=== PATIENT | female | born 1965 | race Caucasian/White ===

== ENCOUNTER 2024-06-26 14:25 | Outpatient (AMB) | payer BC, SELFPAY ==
--- NOTE | 2024-06-26 14:29 | MHC.OFFVIS ---
Vital Signs 06/26/24 14:30 Height 5 ft 2 in Weight 136 lb 2 oz BMI 24.9 BP 138/84 Blood Pressure Location Lt brachial Position Sitting Pulse 78 Pulse Source Pulse Oximeter Pulse Oximetry (%) 98 Oxygen Delivery Method Room Air Intake Visit Reasons: Arthritis Intake Note: Patient presents for follow up on arthralgia. She was last seen at [facility] on 12/28/23. Allergies Penicillins Allergy (Unknown, Unverified 06/26/24 14:34) Unknown Seasonal Allergies Allergy (Unknown, Unverified 06/26/24 14:34) Unknown HPI HPI Arthritis: Details: She was prescribed elbow braces for bilateral ulnar neuropathy on EMG as well as empiric treatment of median neuropathy with bilateral cock-up wrist braces as patient experiences paraesthesia in all fingers with increased activity (summer months). Patient reports that [facility] has a but is requesting additional information. 02/13 she had pain and swelling right 2-3 palmar MCP swelling. Lasted 2-3 days. Used ibuprofen 600mg q12h PRN 03/25 woke up with right shoulder pain and limited ROM. X-ray showed tendonitis. She was precribed diclofenac po BID for few days then changed to ibuprofen when pain improved. Lasted 4 days. 03/29 she had pain in right CMC then left CMC joint 04/22 pain and swelling R 3rd palmar MCP 05/28-12 left iritis treated with prednisolone. 05/31 base of bocanegra 3-5th MCP pain and swelling lasting a few days. Ibuprofen 600 mg q.12 hourly p.r.n. helps reduce joint pain and swelling. No other joints are involved. New patch right elbow. She has scales in her ears with pruritus treated with topical steroid prescribed by self sealing fuel tank repairer in the past who diagnosed her with dermatitis. Scales resolve with steroid. Mother has psoriasis. hx bilateral iritis with [address] Lopez. Treated with prednisolone ocular drops PRN. Denies IBD or chronic back when she was young. [facility]LY [facility], [facility] Medical History (Updated 06/26/24 @ 15:41 by Blake Howard MD) Iritis of left eye Hypothyroid Hernia Arthralgia of hand RUSTY positive Surgical History (Updated 05/24/24 @ 09:15 by Rayne Cohen CMA) S/P bunionectomy Review of Systems Const All systems reviewed & are unremarkable except as noted in HPI and below Physical Exam Vital Signs: Last Vital Signs Pulse 78 06/26/24 14:30 BP 138/84 06/26/24 14:30 Pulse Ox 98 06/26/24 14:30 Oxygen Delivery Method Room Air 06/26/24 14:30 BMI result Body Mass Index 24.9 Const Other: General: Comfortable CVS: RRR Respiratory: clear to auscultation bilaterally. Good respiratory effort Skin: Dry skin with rough skin and scaling present around right elbow. no erythematous lesion. MSK: No tenderness of any joint. No synovitis. Good range of motion of upper extremities and lower extremities. Assessment & Plan Assessment & Plan (1) Joint swelling: Comment: She continues to have episodic joint swelling involving palmar aspect of MCPs responding to ibuprofen 600 mg q.12 hourly lasting a few days. She has history of iritis with clinical concern of psoriasis in ears. 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 Code(s): M25.40 - Effusion, unspecified joint Category: Medical Plan: I have ordered labs for patient to have done at her local lab during an episode for further workup of inflammatory arthritis. [facility]ing [facility] Return to clinic in 3 months. She will call office if she has frequent episodes. I will then prescribed meloxicam 15 mg daily to replace ibuprofen. (2) Psoriasis: Comment: ? Contributing to scaling in ears Code(s): L40.9 - Psoriasis, unspecified Category: Medical Plan: Dermatology referral (3) Ulnar neuropathy of both upper extremities: Comment: Possible on EMG. Exacerbated with activity. Code(s): G56.23 - Lesion of ulnar nerve, bilateral upper limbs Category: Medical Plan: She [place] [facility] [place] [facility] [place]. It is medically necessary that patient receives elbow support braces to treat ulnar neuropathy of bilateral upper extremities. Medical supply store reports that insurance requires more information. Patient will contact medical supply store for information that is required. (4) Carpal tunnel syndrome: Comment: Suspected. Bilateral. She has paraesthesia of all fingers with increased activity. Code(s): G56.00 - Carpal tunnel syndrome, unspecified upper limb Category: Medical Qualifiers: Laterality: bilateral Qualified Code(s): G56.03 - Carpal tunnel syndrome, bilateral upper limbs Plan: Prescription for bilateral cock-up wrist braces was given to patient 11/2023. It is medically necessary the patient receives bilateral cock-up wrist braces to treat carpal tunnel syndrome. Orders: Orders C Reactive Protein Today M25.40 - Effusion, unspecified joint Hepatitis B Core Antibody Today M25.40 - Effusion, unspecified joint Alanine Aminotransferase Today M25.40 - Effusion, unspecified joint Complete Blood Count Auto Diff Today M25.40 - Effusion, unspecified joint Cyclic Citrullinated Peptide Today M25.40 - Effusion, unspecified joint Rheumatoid Factor Today M25.40 - Effusion, unspecified joint Erythrocyte Sedimentation Rate Today M25.40 - Effusion, unspecified joint Hepatitis B Surface Antigen Today M25.40 - Effusion, unspecified joint Hepatitis C Antibody Today M25.40 - Effusion, unspecified joint Aspartate Amino Transferase Today M25.40 - Effusion, unspecified joint Creatinine Today M25.40 - Effusion, unspecified joint HLA B27 Today M25.40 - Effusion, unspecified joint Referrals Dermatology Referral L40.9 - Psoriasis, unspecified Coding Level of Care Code Est Pt Level 4 (95473) Complex EM visit Add On G2211 Diagnoses Joint swelling M25.40 Psoriasis L40.9 Ulnar neuropathy of both upper extremities G56.23 Bilateral carpal tunnel syndrome G56.03 Laterality: bilateral
[2024-06-26 14:30] VITALS: BP 138/84; PULSE 78; O2SAT 98; BMI 24.9
--- OUTSIDE RECORDS SUMMARY | 2024-06-26 15:18 | XMS_ITS | Patient Health Record ---
Author Organization [facility] Address [address] [place] [address] Care Team Providers Care Tobacco Educator Name Role Phone Therese Dupree Unavailable [phone] Reason For Referral No Information Medications Medication SIG (Take, Route, Frequency, Duration) Notes Start Date End Date Status Levothyroxine Sodium 50MCG 1 ORAL daily for -3 Keon-MJ 03/2012 Active Problems Problem Type SNOMED Code ICD Code Onset Dates Problem Status W/U Status Risk Notes Problem Hypothyroidism (06303724) Unspecified hypothyroidism (244.9) Active confirmed Major Problem Gynecological examination normal (338024632023446) Routine gynecological examination (V72.31) Active confirmed Diag Problem Dietary management surveillance (441398068) Dietary surveillance and counseling (V65.3) Active confirmed Diag Problem Exercises teaching, guidance, and counseling (898964607) Exercise counseling (V65.41) Active confirmed Diag Plan Of Treatment No Information Insurance Providers Payer Name Payer Address Payer Phone Subscriber Number Group Number Insured Name Patient Relationship to Insured Coverage Start Date Coverage End Date [employer] [place] [address] [place] [address] [id number] GABBY JOSÉ Self - patient is the insured 2
--- OUTSIDE RECORDS SUMMARY | 2024-06-26 15:18 | XMS_ITS | Encounter Summary ---
Author Organization [employer] [facility] Address [address] [place] [address] [address]t [place] [address] Care Team Providers Care Director Of Group Sales Name Role Phone Unavailable Primary Care Provider Unavailabl e Encounter Details Date Type Department Care Team (Late st Contact Info) Description 05/13/2022 Abstract Angy [facility] [address] [place] [address] Dental, Provider, DDS Social History Tobacco Use Types Packs/Day Years Used Date Smoking Tobacco: Never Assessed Comments Unknown Sex and Gender Information Value Date Recorded Sex Assigned at Female 10/01/2022 7:55 AM EDT Legal Sex Female 5:35 PM EDT Gender Identity Choose not to disclose 7:55 AM EDT Sexual Orientation Choose not to disclose 2022 7:55 AM EDT documented as of this encounter Plan of Treatment Not on file documented as of this encounter Procedures Procedure Name Priority Date/Time Associated Diagnosis Comments PROPHYLAXIS - ADULT Routine 04/19/2022 1 2:00 AM EST PERIODIC ORAL EVALUATION - ESTABLISHED PATIENT Routine 04/19/2022 12:00 AM EST documented in this encounter Visit Diagnoses Not on filedocumented in this encounter
--- OUTSIDE RECORDS SUMMARY | 2024-06-26 15:18 | XMS_ITS | Encounter Summary ---
Author Organization [employer] [facility] Address [address] [place] [address] [address]t [place] [address] Care Team Providers Care Paper Stacker Name Role Phone Unavailable Primary Care Provider Unavailabl e Encounter Details Date Type Department Care Team (Latest Contact Info) Description 10/14/2021 Abstract [facility] Dental, Provider, DDS Social History Tobacco Use [...] on file documented as of this encounter Visit Diagnoses Not on filedocumented in this encounter
--- OUTSIDE RECORDS SUMMARY | 2024-06-26 15:18 | XMS_ITS | Clinical Summary ---
Author Organization [facility] [employer] [facility] Address [address] [place] [address] [address] [place] [address] Care Team Providers Care Wastewater Design Engineer Name Role Phone Unavailable Primary Care Provider Unavailabl e Allergies Active Allergy Reactions Criticality Noted Date Comments Penicillin G Dermatitis Low 05/06/2023 Medications No known medications Social History Tobacco Use Types Packs/Day Years Used Date Smoking Tobacco: Never Assessed Comments Unknown Sex and Gender Information Value Date Recorded Sex Assigned at Female 10/01/2022 7:55 AM EDT Legal Sex Female 5:35 PM EDT Gender Identity Choose not to disclose 7:55 AM EDT Sexual Orientation Choose not to disclose 2022 7:55 AM EDT Plan of Treatment Health Maintenance Due Date Last Done Comments CT Colonography 1964 Colonoscopy 1964 Colorectal Cancer Screening 1964 Depression Screening 1964 FIT DNA/Cologuard 1964 FIT 1964 FOBT 1964 HIV Screening 1964 SDOH Screening 1964 Sigmoidoscopy 1964 Alcohol/Substance Use Screening 1976 Tobacco Screening 1976 Hepatitis C Screening 1982 Hepatitis B Vaccines (1 of 3 - 19+ 3-dose series) 11/03/1983 Pap Smear 1985 Cervical Cancer Screening 1994 HPV/Cotest 1994 Mammogram 2004 Zoster Vaccines (1 of 2) 2014 Dental X-Ray: Full Mouth 06/01/2021 05/31/2018, 08/29 Dental X-Ray: Bitewings 10/24/2023 10/23/19 23, 10/14/2021, 10/10/2020, Additional history exists Dental Oral Exam 11/06/2023 05/06/2023, , 04/19/2022, Additional history exists Dental Prophylaxis 11/06/2023 05/06/2023, 0 10/22/2022, 04/19/2022, Additional history exists COVID-19 Vaccine (3 - season) 2024 07/11/2021, 11/01/2020 Influenza Vaccine (#1) 2024 0, 03/24/2018, 03/12/2015, Additional history exists DTaP/Tdap/Td Vaccines (3 - Td or Tdap) 12/15/2031 12/14/2021, 03/24/2012 RSV Patients and Patients Aged 60 years or older (1 - 1-dose 75+ series) 11/03/2039 HIB Vaccines Aged Out No longer eligi ble based on patient's age to complete this topic HPV Vaccines Aged Out No longer eligi ble based on patient's age to complete this topic Hepatitis A Vaccines Aged Out No long er eligible based on patient's age to complete this topic IPV Vaccines Aged Out No longer eligi ble based on patient's age to complete this topic Meningococcal Vaccine Aged Out No rowdy kevin eligible based on patient's age to complete this topic Pneumococcal Vaccine: Pediatrics (0 to 5 Years) and At-Risk Patients (6 to 64 Years) Aged Out No longer eligible based on patient's age to complete this topic RSV under 20 months Aged Out No longe r eligible based on patient's age to complete this topic Rotavirus Vaccines Aged Out No longer eligible based on patient's age to complete this topic Procedures Procedure Name Priority Date/Time Associated Diagnosis Comments Full PROPHYLAXIS - ADULT Routine 023 12:00 PM EST PERIODIC ORAL EVALUATION - ESTABLISHED PATIENT Routine 05/06/2023 12:00 PM EST BITEWINGS - 4 RADIOGRAPHIC IMAGES Routine 10/22/2022 10:20 AM EDT DIAGNOSTIC - DIAGNOSTIC IMAGING - INTRAORAL - COMPREHENSIVE SERIES OF RADIOGRAPHIC IMAGES Routine 05/31/2018 12:00 AM EST from Last 3 Months or Most Recently Relevant to Health Maintenance Insurance [facility]
--- OUTSIDE RECORDS SUMMARY | 2024-06-26 15:18 | XMS_ITS | Encounter Summary ---
Author Organization [employer] [facility] Address [address] [place] [address] [address] [place] [address] Care Team Providers Care Coal Drier Operator Name Role Phone Unavailable Primary Care Provider Unavailabl e Encounter Details Date Type Department Care Team (Latest Contact Info) Description 01/04/2019 Abstract [facility], Provider, DDS Social [...]
--- OUTSIDE RECORDS SUMMARY | 2024-06-26 15:18 | XMS_ITS | Encounter Summary ---
Author Organization [employer] [facility] Address [address] [place] [address] [address] [place] [address] Care Team Providers Care Master Plumber Name Role Phone Unavailable Primary Care Provider Unavailabl e Encounter Details Date Type Department Care Team (Latest Contact Info) Description 10/10/2020 Abstract [facility] Dental, Provider, DDS Social [...]
--- OUTSIDE RECORDS SUMMARY | 2024-06-26 15:18 | XMS_ITS | Encounter Summary ---
Author Organization [employer] [facility] Address [address] [place] [address] [address]t [place] [address] Care Team Providers Care Rotary Soil Stabilizer Name Role Phone Unavailable Primary Care Provider Unavailabl e Encounter Details Date Type Department Care Team (Latest Contact Info) Description 04/13/2021 Abstract [facility], Provider, DDS Social [...]
--- OUTSIDE RECORDS SUMMARY | 2024-06-26 15:19 | XMS_ITS | Encounter Summary ---
Author Organization [employer] [facility] Address [address] [place] [address] [address] [place] [address] Care Team Providers Care Fine Wire Drawer Name Role Phone Unavailable Primary Care Provider Unavailabl e Encounter Details Date Type Department Care Team (Latest Contact Info) Description 05/31/2018 Abstract [facility] Dental, Provider, DDS Social [...]
== END 2024-06-26 15:21 | disposition home or self-care (01) ==
PROVIDERS: PCP Internal Medicine; Visit Provider Internal Medicine Rheumatology
DX: M25.40 Effusion, unspecified joint (principal); L40.9 Psoriasis, unspecified; G56.23 Lesion of ulnar nerve, bilateral upper limbs; G56.03 Carpal tunnel syndrome, bilateral upper limbs
CPT/HCPCS: 99214

== ENCOUNTER 2024-09-25 13:11 | Outpatient (REF) | payer BC, SELFPAY ==
--- OUTSIDE RECORDS SUMMARY | 2024-09-25 16:17 | XMS_ITS | Encounter Summary ---
Author Organization [employer] [facility] Address [address] [place] [address] [address]t [place] [address] Care Team Providers Care Guard Lieutenant Name Role Phone Unavailable Primary Care Provider [...]
--- OUTSIDE RECORDS SUMMARY | 2024-09-25 16:17 | XMS_ITS | Encounter Summary ---
Author Organization [employer] [facility] Address [address] [place] [address] [address] [place] [address] Care Team Providers Care Fine Grade Bulldozer Operator Name Role Phone Unavailable Primary Care [...]
--- OUTSIDE RECORDS SUMMARY | 2024-09-25 16:17 | XMS_ITS | Clinical Summary ---
Author Organization [facility] [employer] [facility] Address [address] [place] [address] [address]t [place] [address] Care Team Providers Care Defensive Driving Instructor Name Role Phone Unavailable Primary Care Provider [...] Most Recently Relevant to Health Maintenance Insurance [facility]
--- OUTSIDE RECORDS SUMMARY | 2024-09-25 16:17 | XMS_ITS | Encounter Summary ---
Author Organization [employer] [facility] Address [address] [place] [address] [address]t [place] [address] Care Team Providers Care Rn Call Center Name Role Phone Unavailable Primary Care Provider Unavailabl e Encounter Details Date Type Department Care Team (Late st Contact Info) Description 05/13/2022 Abstract Angy [facility] Dental [address] [place] [address] Dental, Provider, DDS Social History Tobacco Use [...]
--- OUTSIDE RECORDS SUMMARY | 2024-09-25 16:17 | XMS_ITS | Encounter Summary ---
Author Organization [employer] [facility] Address [address] [place] [address] [address]t [place] [address] Care Team Providers Care Type Disk Quality Control Supervisor Name Role Phone Unavailable Primary Care [...]
--- OUTSIDE RECORDS SUMMARY | 2024-09-25 16:17 | XMS_ITS | Encounter Summary ---
Author Organization [employer] [facility] Address [address] [place] [address] [address]t [place] [address] Care Team Providers Care Contract Administrator Name Role Phone Unavailable Primary Care Provider [...]
--- OUTSIDE RECORDS SUMMARY | 2024-09-25 16:17 | XMS_ITS | Encounter Summary ---
Author Organization [employer] [facility] Address [address] [place] [address] 7t [place] [address] Care Team Providers Care Bait Man Name Role Phone Unavailable Primary Care Provider [...]
[2024-09-25 17:34] LABS: MANUAL DIFF FLAG NO
[2024-09-25 17:46] LABS: Basophils Absolute Auto 0.1 X10*3/uL (0.0-0.2); Basophils Percent Auto 0.6 % (0-2); Eosinophils Absolute Auto 0.2 X10*3/uL (0.0-0.4); Eosinophils Percent Auto 1.7 % (0-4); Hematocrit 41.1 % (37.0-47.0); Hemoglobin 13.7 g/dl (12.0-16.0); Imm Gran Abs Auto 0.03 X10*3/uL (0.00-0.03); Imm Gran Pct Auto 0.3 % (0.0-0.4); Lymphocytes Absolute Auto 2.2 X10*3/uL (1.2-4.9); Lymphocytes Percent Auto 25.7 % (20-40); Mean Corpuscular HGB Conc 33.3 g/dl (31.0-35.0); Mean Corpuscular Hemoglobin 31.6 pg (27.0-33.0); Mean Corpuscular Volume 94.9 fL (80.0-98.0); Mean Platelet Volume 10.1 fL (9.4-12.3); Monocytes Absolute Auto 0.5 X10*3/uL (0.1-1.2); Monocytes Percent Auto 5.9 % (2-11); Neutrophils Absolute Auto 5.7 x10*3/uL (2.0-8.3); Neutrophils Percent Auto 65.8 % (45-73); Platelet Count 235 X10*3/uL (160-400); Red Blood Count 4.33 X10*6/uL (4.20-5.50); White Blood Count 8.6 X10*3/uL (4.8-10.8)
[2024-09-25 18:05] LABS: Rheumatoid Factor < 13.0 IU/mL (<15.0)
[2024-09-25 18:14] LABS: Alanine Aminotransferase 29 U/L (0-31); Aspartate Amino Transferase 32 U/L (5-31); C Reactive Protein 0.33 mg/dL (< or = 0.50); Estimated Glomerular Filt Rate > 60
[2024-09-25 18:44] LABS: Erythrocyte Sedimentation Rate 10 MM/HR (0-20)
[2024-09-26 08:18] LABS: HBc Num1 0.04 S/CO (0.00-0.79); HBsAGNum1 0.27 S/CO (0.00-0.99); Hepatitis B Core Antibody Nonreactive (Nonreactive); Hepatitis B Surface Antigen Negative (Negative); ~HepC Num1 0.05 S/CO (0.00-0.79); ~Hepatitis C Antibody Nonreactive (Nonreactive)
[2024-10-01 18:04] LABS: Cyclic Citrullinated Peptide <16 UNITS
[2024-10-03 09:38] LABS: HLA B27 Negative (Negative)
== END 2024-09-25 13:12 | disposition home or self-care (01) ==
LOC: HO.HKASLDS 13:11
PROVIDERS: PCP Internal Medicine; Visit Provider Internal Medicine Rheumatology
DX: M25.40 Effusion, unspecified joint (principal)
CPT/HCPCS: 36415; 82565; 84450; 84460; 85025; 85652; 86140; 86200; 86431; 86704; 86803; 86812; 87340

== ENCOUNTER 2024-09-25 13:11 | Outpatient (AMB) | payer BC, SELFPAY ==
--- NOTE | 2024-09-25 13:16 | A.OFFVIS_ITS ---
Vital Signs 09/25/24 13:31 Height 5 ft 2 in Weight 137 lb 9.095 oz BMI 25.2 BP 120/80 Blood Pressure Location Rt brachial Position Sitting Pulse 80 Pulse Source Pulse Oximeter Pulse Oximetry (%) 98 Oxygen Delivery Method Room Air Intake Visit Reasons: 3 mnts Intake Note: Patient presents for follow up on arthralgia. Slubber Frame Changer Required: No Accompanied by: Self / Same As Patient Allergies Penicillins Allergy (Unknown, Verified 09/25/24 13:16) Unknown Seasonal Allergies Allergy (Unknown, Verified 09/25/24 13:16) Unknown HPI HPI 3 mnts: Details: One episode 08/18 lasting 24 hours of pain and swelling palmar aspect right hand. 4/3 Right wrist stiff. Stretching helped. Not self-medicated. R wrist medial pain. She saw dermatology who dx her with dermatitis of ear. No bx was done. She had an episode of left iritis treated with advil for few days a month ago. She did not used topical prednisolone. 10 year hx of iritis. Last episode was [address] Lopez. [facility] Medical History Iritis of left eye Hypothyroid Hernia Arthralgia of hand RUSTY positive Surgical History S/P bunionectomy Review of Systems Const All systems reviewed & are unremarkable except as noted in HPI and below Physical Exam Vital Signs: Last Vital Signs Pulse 80 09/25/24 13:31 BP 120/80 09/25/24 13:31 Pulse Ox 98 09/25/24 13:31 Oxygen Delivery Method Room Air 09/25/24 13:31 BMI result Body Mass Index 25.2 Const Other: General: Comfortable CVS: RRR Respiratory: clear to auscultation bilaterally. Good respiratory effort Skin: No lesions present MSK: Tender in between webspace of right 1st and 2nd MCP. Slight squaring right CMC. No synovitis. Normal range of motion of upper extremities and lower extremities. Assessment & Plan Assessment & Plan (1) Joint swelling: Comment: She continues to have episodic joint swelling involving palmar aspect of MCPs responding to ibuprofen 600 mg q.12 hourly, self-limited 1-3 days. Since last visit she has only had 1 episode. 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 [facility], which reveal mild CMC osteoarthritis. 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 Differential diagnosis also includes palindromic rheumatism and crystal arthritis. Code(s): M25.40 - Effusion, unspecified joint Category: Medical Plan: Labs ordered for patient Return to clinic in 3 months. She will call office if she has frequent episodes. I will then prescribed meloxicam 15 mg daily to replace ibuprofen. (2) Psoriasis: Comment: ? Contributing to scaling in ears. She had evaluation by Dermatology who diagnosed with her dermatitis in ears Code(s): L40.9 - Psoriasis, unspecified Category: Medical Plan: Continued use topical steroid as needed (3) Ulnar neuropathy of both upper extremities: Comment: Possible on EMG. Exacerbated with activity. Asymptomatic at this time. Unable to tolerate brace at night. Code(s): G56.23 - Lesion of ulnar nerve, bilateral upper limbs Category: Medical Plan: She will try to use brace when doing repetitive activity Return to clinic in 3 months (4) Carpal tunnel syndrome: Comment: Suspected. Bilateral. She has paraesthesia of all fingers with increased activity. Asymptomatic at this time. Code(s): G56.00 - Carpal tunnel syndrome, unspecified upper limb Category: Medical Qualifiers: Laterality: bilateral Qualified Code(s): G56.03 - Carpal tunnel syndrome, bilateral upper limbs Plan: She will wear braces at night when she is symptomatic Return to clinic in 3 months Coding Level of Care Code Est Pt Level 4 (41285) Complex EM visit Add On G2211 Diagnoses Joint swelling M25.40 Psoriasis L40.9 Ulnar neuropathy of both upper extremities G56.23 Bilateral carpal tunnel syndrome G56.03 Laterality: bilateral
[2024-09-25 13:31] VITALS: BP 120/80; PULSE 80; O2SAT 98; BMI 25.2
--- OUTSIDE RECORDS SUMMARY | 2024-09-25 15:15 | XMS_ITS | Encounter Summary ---
Author Organization [employer] [facility] Address [address] [place] [address] [address]t [place] [address] Care Team Providers Care Laborer Brush Clearing Name Role Phone Unavailable Primary Care Provider [...]
--- OUTSIDE RECORDS SUMMARY | 2024-09-25 15:15 | XMS_ITS | Encounter Summary ---
Author Organization [employer] [facility] Address [address] [place] [address] [address]t [place] [address] Care Team Providers Care Fund Accounting Manager Name Role Phone Unavailable Primary Care Provider [...]
--- OUTSIDE RECORDS SUMMARY | 2024-09-25 15:15 | XMS_ITS | Encounter Summary ---
Author Organization [employer] [facility] Address [address] [place] [address] [address]t [place] [address] Care Team Providers Care Academic Computing Director Name Role Phone Unavailable Primary Care Provider [...]
--- OUTSIDE RECORDS SUMMARY | 2024-09-25 15:15 | XMS_ITS | Clinical Summary ---
Author Organization [facility] [employer] [facility] Address [address] [place] [address] [address]t [place] [address] Care Team Providers Care Pediatric Clinical Dietician Name Role Phone Unavailable Primary Care Provider [...] Cancer Screening 1994 HPV/Cotest 1994 Mammogram 2004 Pneumococcal Vaccine: 50+ Years (1 of 1 - PCV) 2014 Zoster Vaccines (1 of 2) 2014 Dental X-Ray: Full Mouth 06/01/2021 05/31/2018, 08/29 Dental X-Ray: Bitewings 10/24/2023 10/23/19 23, 10/14/2021, 10/10/2020, Additional history exists Dental Oral Exam 11/06/2023 05/06/2023, , 04/19/2022, Additional history exists Dental Prophylaxis 11/06/2023 05/06/2023, 0 10/22/2022, 04/19/2022, Additional history exists COVID-19 Vaccine ( - season) 2024 07/11/2021, 11/01/2020 Influenza Vaccine (#1) 2024 , 03/24/2018, 03/12/2015, Additional history exists DTaP/Tdap/Td Vaccines [...] RADIOGRAPHIC IMAGES Routine 10/22/2022 10:20 AM EDT INTRAORAL - COMPLETE SERIES OF RADIOGRAPHIC IMAGES Routine 05/31/2018 12:00 AM EST from Last 3 Months or Most Recently Relevant to Health Maintenance Insurance [facility]
--- OUTSIDE RECORDS SUMMARY | 2024-09-25 15:15 | XMS_ITS | Patient Health Record ---
Author Organization [facility] Address [address] [place] [address] Care Team Providers Care Trial Court Justice Name Role Phone Therese Dupree Unavailable [phone] Reason For Referral No Information Medications Medication SIG (Take, Route, Frequency, Duration) Notes Start Date End Date Status Levothyroxine Sodium 50MCG 1 ORAL daily for -3 Keon-MJ 03/2012 Active Problems Problem Type SNOMED Code ICD Code Onset Dates Problem Status W/U Status Risk Notes Problem Hypothyroidism (54788544) Unspecified hypothyroidism (244.9) Active confirmed Major Problem Gynecological examination normal (733785671453016) Routine gynecological examination (V72.31) Active confirmed Diag Problem Dietary management surveillance (264360762) Dietary surveillance and counseling (V65.3) Active confirmed Diag Problem Exercises teaching, guidance, and counseling (684300711) Exercise counseling (V65.41) Active confirmed Diag Plan Of Treatment No Information Insurance Providers Payer Name Payer Address Payer Phone Subscriber Number Group Number Insured Name Patient Relationship to Insured Coverage Start Date Coverage End Date [employer] [place] [address] [place] [address] [phone] [id number] GABBY JOSÉ Self - patient is the insured 2
--- OUTSIDE RECORDS SUMMARY | 2024-09-25 15:15 | XMS_ITS | Encounter Summary ---
Author Organization [employer] [facility] Address [address] [place] [address] [address]t [place] [address] Care Team Providers Care News Agent Name Role Phone Unavailable Primary Care Provider [...]
--- OUTSIDE RECORDS SUMMARY | 2024-09-25 15:15 | XMS_ITS | Encounter Summary ---
Author Organization [employer] [facility] Address [address] [place] [address] 7t [place] [address] Care Team Providers Care Activities Volunteer Name Role Phone Unavailable Primary Care Provider Unavailabl e Encounter Details Date Type Department Care Team (Late st Contact Info) Description 05/13/2022 Abstract Angy [facility] Dental [address] [place] [address] Dental, Provider, DDS Social History Tobacco Use [...]
--- OUTSIDE RECORDS SUMMARY | 2024-09-25 15:15 | XMS_ITS | Encounter Summary ---
Author Organization [employer] [facility] Address [address] [place] [address] [address]t [place] [address] Care Team Providers Care Fast Food Shift Supervisor Name Role Phone Unavailable Primary Care Provider [...]
== END 2024-09-25 14:10 | disposition home or self-care (01) ==
LOC: HO.RHES 13:12
PROVIDERS: PCP Internal Medicine; Visit Provider Internal Medicine Rheumatology
DX: M25.40 Effusion, unspecified joint (principal); L40.9 Psoriasis, unspecified; G56.23 Lesion of ulnar nerve, bilateral upper limbs; G56.03 Carpal tunnel syndrome, bilateral upper limbs
CPT/HCPCS: 99214

== ENCOUNTER 2024-12-05 11:01 | Outpatient (REF) | payer BC, SELFPAY ==
--- OUTSIDE RECORDS SUMMARY | 2024-12-05 12:10 | XMS_ITS | Patient Health Record ---
Author Organization [facility] Address [address] [place] [address] Care Team Providers Care Supervisor Pumping Station Name Role Phone Therese Dupree Unavailable [phone] Reason For Referral No Information Medications Medication SIG (Take, Route, Frequency, Duration) Notes Start Date End Date Status Levothyroxine Sodium 50MCG 1 ORAL daily; Duration: -3 Keon-MJ 09/08/2011 Active Problems Problem Type SNOMED Code ICD Code Onset Dates Problem Status W/U Status Risk Notes Problem Hypothyroidism (57859688) Unspecified hypothyroidism (244.9) Active confirmed Major Problem Routine gynecological examination (V72.31) Active confirmed Diag Problem Dietary management surveillance (603864309) Dietary surveillance and counseling (V65.3) Active confirmed Diag Problem Exercises teaching, guidance, and counseling (046301850) Exercise counseling (V65.41) Active confirmed Diag Plan Of Treatment No Information Insurance Providers Payer Name Payer Address Payer Phone Subscriber Number Group Number Insured Name Patient Relationship to Insured Coverage Start Date Coverage End Date [employer] [place] [address] [place] [address] [id number] GABBY JOSÉ Self - patient is the insured 2
--- OUTSIDE RECORDS SUMMARY | 2024-12-05 12:10 | XMS_ITS | Encounter Summary ---
Author Organization [employer] Address [address] [place] [address] [address]t [place] [address] Care Team Providers Care Conference Director Name Role Phone Unavailable Primary Care [...]
[2024-12-05 15:10] LABS: Alanine Aminotransferase 17 U/L (0-31); Aspartate Amino Transferase 20 U/L (5-31)
== END 2024-12-05 11:02 | disposition home or self-care (01) ==
LOC: HO.WFDLDS 11:01
PROVIDERS: Visit Provider Internal Medicine Rheumatology
DX: R74.01 Elevation of levels of liver transaminase levels (principal)
CPT/HCPCS: 36415; 84450; 84460

== ENCOUNTER 2025-01-30 08:14 | Outpatient (AMB) | payer BC, SELFPAY ==
--- NOTE | 2025-01-30 08:16 | A.OFFVIS_ITS ---
Vital Signs 01/30/25 08:21 Height 5 ft 2 in Weight 135 lb 5.821 oz BMI 24.8 BP 115/70 Blood Pressure Location Lt brachial Position Sitting Pulse 64 Pulse Source Pulse Oximeter Pulse Oximetry (%) 98 Oxygen Delivery Method Room Air Intake Visit Reasons: 3 Months Intake Note: Patient presents for Arthralgia follow up. Allergies Penicillins Allergy (Unknown, Verified 01/30/25 08:20) Unknown Seasonal Allergies Allergy (Unknown, Verified 01/30/25 08:20) Unknown HPI HPI 3 Months: Details: She had one episode of pain and swelling right 4th palmar aspect of MCP 12/22 then 12/28. Finger was swollen. Unable to move finger. Self-limited. She keep movi ng her finger. Denies clicking or locking. She was on her leg house when it happened. She had 2 glasses of wine the night before. She denies consuming selfish or red me around the time when it occurred. No family history of gout. She was very active over the summer at her [place] house. She would wear her wrists braces at night, which prevented neuropathy the summer. [facility] Medical History Iritis of left eye Hypothyroid Hernia Arthralgia of hand RUSTY positive Surgical History S/P bunionectomy Physical Exam Vital Signs: Last Vital Signs Pulse 64 01/30/25 08:21 BP 115/70 01/30/25 08:21 Pulse Ox 98 01/30/25 08:21 Oxygen Delivery Method Room Air 01/30/25 08:21 BMI result Body Mass Index 24.8 Const Other: General: Comfortable CVS: RRR Respiratory: clear to auscultation bilaterally. Good respiratory effort Skin: No lesions present MSK: No tenderness. No synovitis. Slight squaring right CMC. No synovitis. Normal range of motion of upper extremities and lower extremities. Assessment & Plan Assessment & Plan (1) Joint swelling: Comment: She continues to have episodic joint swelling involving palmar aspect of 4th MCP. Previously response to ibuprofen 600 mg q.12 hourly, self-limited 1-3 days. Since last visit she has only had 2 episodes. consider spondyloarthritis versus crystal arthritis (trigger: Wine) in the differential diagnosis. 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 [facility], which reveal mild CMC osteoarthritis. Code(s): M25.40 - Effusion, unspecified joint Category: Medical Plan: monitor clinically Uric acid and creatinine order Avoid alcohol. Encouraged low purine diet. I recommend that she have a theatrical performer consult. We discussed importance of having a healthy weight. She wishes to lose 10 more lb. RTC 4 months or sooner if needed. She will call when she has an episode for an appointment in my urgent slot for evaluation (2) Ulnar neuropathy of both upper extremities: Comment: Possible on EMG. Exacerbated with activity. Asymptomatic at this time. Unable to tolerate brace at night. Code(s): G56.23 - Lesion of ulnar nerve, bilateral upper limbs Category: Medical Plan: Continue to wear braces PRN repetitive activity Return to clinic in 4 months (3) Carpal tunnel syndrome: Comment: Suspected. Bilateral. She has paraesthesia of all fingers with increased activity. Asymptomatic at this time. Code(s): G56.00 - Carpal tunnel syndrome, unspecified upper limb Category: Medical Qualifiers: Laterality: bilateral Qualified Code(s): G56.03 - Carpal tunnel syndrome, bilateral upper limbs Plan: Continue to wear braces at night when she is symptomatic Return to clinic in 4 months Orders: Orders Uric Acid Today M25.40 - Effusion, unspecified joint Creatinine Today M25.40 - Effusion, unspecified joint Coding Level of Care Code Est Pt Level 4 (87811) Complex EM visit Add On G2211 Diagnoses Joint swelling M25.40 Ulnar neuropathy of both upper extremities G56.23 Bilateral carpal tunnel syndrome G56.03 Laterality: bilateral
[2025-01-30 08:21] VITALS: BP 115/70; PULSE 64; O2SAT 98; BMI 24.8
--- OUTSIDE RECORDS SUMMARY | 2025-01-30 08:42 | XMS_ITS | Clinical Summary ---
Author Organization [email or web address] Address [address] [place] [address] [address]t [place] [address] Care Team Providers Care Field Representative/Health Education Name Role Phone Unavailable Primary Care Provider [...] Screening 1964 SDOH Screening 1964 Sigmoidoscopy 1964 Disability Screening 1964 Alcohol/Substance Use Screening 1976 Tobacco Screening 1976 Hepatitis C Screening 1982 Pap Smear 1985 Cervical Cancer Screening 1994 [...] season) 2024 07/11/2021, 11/01/2020 Influenza Vaccine (#1) 2025 0, 03/24/2018, 03/12/2015, Additional history exists DTaP/Tdap/Td [...] patient's age to complete this topic Hepatitis B Vaccines Aged Out No long er eligible based on patient's age to complete this topic IPV Vaccines Aged Out No longer eligi ble based on patient's age to complete this topic Meningococcal B Vaccine Aged Out No l onger eligible based on patient's age to complete [...] Most Recently Relevant to Health Maintenance Insurance [facility]
--- OUTSIDE RECORDS SUMMARY | 2025-01-30 08:42 | XMS_ITS | Encounter Summary ---
Author Organization [employer] Address [address] [place] [address] 7t [place] [address] Care Team Providers Care It Web Development Consultant Name Role Phone Unavailable Primary Care Provider [...]
--- OUTSIDE RECORDS SUMMARY | 2025-01-30 08:42 | XMS_ITS | Patient Health Record ---
Author Organization [facility] Address [address] [facility] [facility] [address] [place] [address] Care Team Providers Care Parks Recreation Director Name Role Phone Therese Dupree Unavailable [phone] Reason For Referral No Information Medications Medication SIG (Take, Route, Frequency, Duration) Notes Start Date End Date Status Levothyroxine Sodium 50MCG 1 ORAL daily; Duration: -3 Keon-MJ 09/08/2011 Active Problems Problem Type SNOMED Code ICD Code Onset Dates Problem Status W/U Status Risk Notes Problem Unspecified hypothyroidism (244.9) Active confirmed Major Problem Gynecological examination normal (367545116427684) Routine gynecological examination (V72.31) Active confirmed Diag Problem Dietary management surveillance (002417043) Dietary surveillance and counseling (V65.3) Active confirmed Diag Problem Exercises teaching, guidance, and counseling (084293688) Exercise counseling (V65.41) Active confirmed Diag Plan Of Treatment No Information Insurance Providers Payer Name Payer Address Payer Phone Subscriber Number Group Number Insured Name Patient Relationship to Insured Coverage Start Date Coverage End Date [employer] [place] [address] [place] [address] [id number] GABBY JOSÉ Self - patient is the insured 2
--- OUTSIDE RECORDS SUMMARY | 2025-01-30 08:42 | XMS_ITS | Encounter Summary ---
Author Organization [email or web address] Address [address] [place] [address] [address] [place] [address] Care Team Providers Care Poly Operator Name Role Phone Unavailable Primary Care [...]
--- OUTSIDE RECORDS SUMMARY | 2025-01-30 08:42 | XMS_ITS | Encounter Summary ---
Author Organization [employer] Address [address] [place] [address] [address]t [place] [address] Care Team Providers Care Cut Off Saw Grader Name Role Phone Unavailable Primary Care Provider [...]
--- OUTSIDE RECORDS SUMMARY | 2025-01-30 08:42 | XMS_ITS | Encounter Summary ---
Author Organization [employer] Address [address] [place] [address] [address]t [place] [address] Care Team Providers Care Research Project Manager Name Role Phone Unavailable Primary Care [...]
--- OUTSIDE RECORDS SUMMARY | 2025-01-30 08:42 | XMS_ITS | Encounter Summary ---
Author Organization [employer] Address [address] [place] [address] 7t [place] [address] Care Team Providers Care Site Manager Name Role Phone Unavailable Primary Care [...]
--- OUTSIDE RECORDS SUMMARY | 2025-01-30 08:42 | XMS_ITS | Encounter Summary ---
Author Organization [employer] Address [address] [place] [address] 7t [place] [address] Care Team Providers Care Seam Rubber Name Role Phone Unavailable Primary Care Provider Unavailabl e Encounter Details Date Type Department Care Team (Late st Contact Info) Description 05/13/2022 Abstract Angy [facility] Dental [address] [place] [address] Dental, Provider, DDS Social History Tobacco Use [...]
== END 2025-01-30 08:47 | disposition home or self-care (01) ==
LOC: HO.RHES 08:15
PROVIDERS: PCP Internal Medicine; Visit Provider Internal Medicine Rheumatology
DX: M25.40 Effusion, unspecified joint (principal); G56.23 Lesion of ulnar nerve, bilateral upper limbs; G56.03 Carpal tunnel syndrome, bilateral upper limbs
CPT/HCPCS: 99214

== ENCOUNTER 2025-02-07 11:33 | Outpatient (REF) | payer BC, SELFPAY ==
[2025-02-07 14:48] LABS: Cholesterol 166 mg/dL (<200); Iron 127 mcg/dL (30-160); Magnesium 2.2 mg/dL (1.6-2.6); Percent Iron Saturation 43 % (15-50); Total Iron Binding Capacity 298 mcg/dL (228-428); Unsaturated Iron Binding 171 ug/dL
[2025-02-07 14:54] LABS: Estimated Glomerular Filt Rate > 60; Uric Acid 5.3 mg/dL (2.4-5.7)
[2025-02-07 15:12] LABS: Ferritin 103 ng/mL (10-250)
[2025-02-07 15:13] LABS: Vitamin B12 327 pg/mL (200-900)
--- OUTSIDE RECORDS SUMMARY | 2025-02-07 15:56 | XMS_ITS | Encounter Summary ---
Author Organization [employer] Address [address] [place] [address] [address] [place] [address] Care Team Providers Care Oxygen Therapy Technician Name Role Phone Unavailable Primary Care Provider Unavailabl e Encounter Details Date Type Department Care Team (Late st Contact Info) Description 05/13/2022 Abstract Angy [facility] Dental [address] [place] [address] Dental, Provider, DDS Social History Tobacco Use [...]
--- OUTSIDE RECORDS SUMMARY | 2025-02-07 15:56 | XMS_ITS | Encounter Summary ---
Author Organization [employer] Address [address] [place] [address] 7t [place] [address] Care Team Providers Care Engineering Department Chair Name Role Phone Unavailable Primary Care Provider [...]
--- OUTSIDE RECORDS SUMMARY | 2025-02-07 15:56 | XMS_ITS | Patient Health Record ---
Author Organization [facility] Address [address] [facility] [address] [place] [address] Care Team Providers Care Monument Setter Helper Name Role Phone Therese Dupree Unavailable [phone] Reason For Referral No Information Medications Medication SIG (Take, Route, Frequency, Duration) Notes Start Date End Date Status Levothyroxine Sodium 50MCG 1 ORAL daily; Duration: -3 Keon-MJ 09/08/2011 Active Problems Problem Type SNOMED Code ICD Code Onset Dates Problem Status W/U Status Risk Notes Problem Hypothyroidism (14895917) Unspecified hypothyroidism (244.9) Active confirmed Major Problem Gynecological examination normal (798819437021559) Routine gynecological examination (V72.31) Active confirmed Diag Problem Dietary management surveillance (395682891) Dietary surveillance and counseling (V65.3) Active confirmed Diag Problem Exercises teaching, guidance, and counseling (460303488) Exercise counseling (V65.41) Active confirmed Diag Plan Of Treatment No Information Insurance Providers Payer Name Payer Address Payer Phone Subscriber Number Group Number Insured Name Patient Relationship to Insured Coverage Start Date Coverage End Date [employer] [place] [address] [place] [address] [phone] [id number] GABBY JOSÉ Self - patient is the insured 2
--- OUTSIDE RECORDS SUMMARY | 2025-02-07 15:56 | XMS_ITS | Encounter Summary ---
Author Organization [employer] Address [address] [place] [address] 7t [place] [address] Care Team Providers Care Lens Blank Gauger Name Role Phone Unavailable Primary Care Provider [...]
--- OUTSIDE RECORDS SUMMARY | 2025-02-07 15:56 | XMS_ITS | Encounter Summary ---
Author Organization [employer] Address [address] [place] [address] [address]t [place] [address] Care Team Providers Care Anodic Operator Name Role Phone Unavailable Primary Care [...]
--- OUTSIDE RECORDS SUMMARY | 2025-02-07 15:56 | XMS_ITS | Encounter Summary ---
Author Organization [employer] Address [address] [place] [address] [address]t [place] [address] Care Team Providers Care Volumetric Weigher Name Role Phone Unavailable Primary Care Provider [...]
--- OUTSIDE RECORDS SUMMARY | 2025-02-07 15:56 | XMS_ITS | Encounter Summary ---
Author Organization [employer] Address [address] [place] [address] [address]t [place] [address] Care Team Providers Care Accounts Payable Administrator Name Role Phone Unavailable Primary Care [...]
--- OUTSIDE RECORDS SUMMARY | 2025-02-07 15:56 | XMS_ITS | Clinical Summary ---
Author Organization [employer] Address [address] [place] [address] [address]t [place] [address] Care Team Providers Care Roller Staker Name Role Phone Unavailable Primary Care Provider [...] history exists COVID-19 Vaccine (3 - season) 2025 07/11/2021, 11/01/2020 Influenza Vaccine (#1) 2025 0, [...] Most Recently Relevant to Health Maintenance Insurance [facility]
[2025-02-12 17:39] LABS: Lipoprotein Asso Phospholip A2 86 (<124)
== END 2025-02-07 11:34 | disposition home or self-care (01) ==
LOC: HO.WFDLDS 11:33
PROVIDERS: Internal Medicine; Visit Provider Internal Medicine Rheumatology
DX: Z00.00 Encounter for general adult medical examination without abnormal findings (principal); E03.9 Hypothyroidism, unspecified; E55.9 Vitamin D deficiency, unspecified; E78.00 Pure hypercholesterolemia, unspecified; M25.449 Effusion, unspecified hand; M25.40 Effusion, unspecified joint
CPT/HCPCS: 36415; 82172; 82306; 82465; 82565; 82607; 82728; 83540; 83698; 83721; 83735; 84443; 84550